=== PATIENT | male | born 1980 | race Asian ===

== ENCOUNTER 2017-09-24 17:45 | Emergency (ER) | payer OTHER ==
[2017-09-24 18:34] LABS: BASOPHIL % 0.5 % (0-2); PLATELET COUNT 304 x10^3mcL (130-400); RED CELL DISTRIBUTION WIDTH 13.7 % (11.5-14.5)
[2017-09-24 18:42] LABS: CALCIUM 8.6 mg/dL (8.5-10.1); CARBON DIOXIDE 24.7 mmol/L (21-32); CHLORIDE SERUM 103 mmol/L (98-107); CREATININE SERUM 1.1 mg/dL (0.7-1.3); GFR1 > 60 mL/min; GLUCOSE SERUM 121 mg/dL (74-106); POTASSIUM SERUM 3.6 mmol/L (3.5-5.1); SODIUM SERUM 139 mmol/L (136-145)
[2017-09-24 18:55] LABS: ALBUMIN 3.6 g/dL (3.4-5.0); ALKALINE PHOSPHATASE 88 U/L (46-116); ALT/SGPT 66 U/L (16-63); AST/SGOT 110 U/L (15-37); BILIRUBIN TOTAL 0.29 mg/dL (0.20-1.00); TOTAL PROTEIN, SERUM 7.7 g/dL (6.4-8.2)
[2017-09-24 19:38] VITALS: BP 128/83
== END 2017-09-24 19:38 | disposition home or self-care (01) ==
LOC: ED 17:45
PROVIDERS: Emergency Medicine
DX: R07.89 Other chest pain (principal)
CPT/HCPCS: 36415; 83880; J1885